=== PATIENT | female | born 1940 | race Caucasian/White ===

== ENCOUNTER 2021-03-04 06:51 | Emergency (ER) | payer MEDICARE, SELFPAY ==
--- NOTE | ~2021-03-04 | XR_ITS ---
EXAMINATION: XR knee LT min 4V DATE: 03/04/2021 07:40 INDICATION: Left knee pain, initial encounter TECHNIQUE: Four views of the left knee were obtained. COMPARISON: None. FINDINGS: There is an acute, traumatic, closed, oblique fracture of the proximal tibia which extends from the medial cortex of the proximal tibia shaft laterally to the lateral tibial plateau. Lipohemar throsis is noted in the knee joint. 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 Calcified atheroscleros is is noted. IMPRESSION: 1. Intra-articular fracture of the proximal tibia with lipohemarthrosis. Reviewed, dictated and finalized at location A.
--- NOTE | ~2021-03-04 | CT_ITS ---
EXAMINATION: CT cervical spine wo con DATE: 03/04/2021 07:52 INDICATION: Head injury TECHNIQUE: Computed tomography (CT) of the cervical spine was performed without intravenous contrast. The dose-length product (DLP) was 319.97 mGy-cm. Automated exposure control and iterative reconstruc tion technique were employed. COMPARISON: None FINDINGS: There is no fracture. There are 2 mm of anterolisthesis of C4 on C5 and C5 on C6. There is severe loss of intervertebral disc space height at C5-6 and C6-7. The odontoid is intact. The prevert ebral soft tissues are normal. There is severe multilevel facet and uncovertebral joint osteoarthriti s. IMPRESSION: 1. Severe cervical spondylosis without acute findings. Reviewed, dictated and finalized at location A.
--- NOTE | ~2021-03-04 | CT_ITS ---
EXAMINATION: CT brain wo con INDICATION: Headache COMPARISON: None TECHNIQUE: Standard unenhanced head CT. The dose-length product (DLP) was 605.33 mGy-cm. The mA was a djusted according to patient size. Iterative reconstruction technique was employed. FINDINGS: There is no acute intraparenchymal hemorrhage. No evidence of mass lesion. No evidence of a cute infarction. There is mild periventricular and subcortical hypodensity probably related to small vessel ischemic disease. There is mild prominence of the sulci and ventricles related to cerebral atr ophy. Intracranial calcified cerebral atherosclerosis is noted. There are no extra-axial collections. There is a left frontal scalp laceration. There is no mass effect or midline shift. Changes in the g lobes are likely from ocular lens surgery. There is mild mucosal thickening of the paranasal sinuses. IMPRESSION: 1. No acute intracranial abnormality. 2. Age related findings. Reviewed, dictated and finalized at location A.
[2021-03-04 06:57] VITALS: BP 163/95; PULSE 87; RESP 18; TEMP 37.1; O2SAT 96
--- NOTE | 2021-03-04 07:33 | ED.FALL ---
HPI - Fall General Chief Complaint: Fall Stated Complaint: Fall, Head lac Time Seen by Provider: 03/04/21 07:11 History of Present Illness HPI Narrative: 80 yo female presents to the ED after a fall. She was walking her sons dog when she was pulled forwar and fell into a wall. She struck her head on the wall and sustained a forehead laceration. No LOC, confusion, nausea, blood thinners. She also struck her knee on the ground. She has severe knee pain and is unable to bear weight. She has also noted significant swelling to the anterior knee. Related Data Home Medications Medication Instructions Recorded Confirmed aspirin 03/04/21 atorvastatin 03/04/21 enalapril maleate 03/04/21 escitalopram oxalate 03/04/21 hydrochlorothiazide 03/04/21 omeprazole 03/04/21 potassium chloride 03/04/21 Allergies Allergy/AdvReac Type Severity Reaction Status Date / Time amoxicillin [From Augmentin] AdvReac Intermediate Diarrhea Verified 03/04/21 07:07 clavulanic acid AdvReac Intermediate Diarrhea Verified 03/04/21 07:07 [From Augmentin] Review of Systems Review of Systems: All systems reviewed & are unremarkable except as noted in HPI and below Constitutional: Constitutional: Denies chills, Denies fever(s) and Denies weakness Eyes: Eyes: Reports no additional eye complaints ENT: Denies dizziness Cardiovascular: Cardiovascular: Denies chest pain Respiratory: Respiratory: Denies dyspnea Gastrointestinal: Gastrointestinal: Denies abdominal pain, Denies nausea and Denies vomiting Genitourinary: Genitourinary: Reports no additional female genitourinary complaints Musculoskeletal: Musculoskeletal: Denies back pain Neurologic: Denies dizziness, Denies headache(s) and Denies weakness [facility] Past Medical History Medical History (Updated 03/04/21 @ 12:53 by Hang Brown MD) Arthritis GERD (gastroesophageal reflux disease) HTN (hypertension) Surgical History Surgical History (Updated 03/04/21 @ 12:53 by Hang Brown MD) Status post right knee replacement Exam Const: General: healthy appearing, no acute distress and alert Orientation/consciousness: patient oriented x3 HENMT: Head: laceration (4 cm forehead laceration) General nose exam: Normal external nose present and Normal nares present Mouth: Yes Normal oral and palatal mucosa present and Yes lip normal Eyes: Pupils: Equal, round and reactive pupils present EOM: EOMs intact bilaterally Neck: Neck: normal visual inspection and no lymphadenopathy Resp: Effort & Inspection: normal respiratory effort Auscultation: clear to auscultation bilaterally, no rales, no rhonchi and no wheezes Cardio: Jugular venous distension: no JVD Rate: regular rate Rhythm: regular rhythm Heart sounds: no murmurs GI: Inspection: non-distended GI Palp: Yes Soft to palpation and No Tenderness to palpation present (GI) Back/Spine/Pelvis: Cervical Spine: cervical ROM normal and No Cervical spine tenderness Skin: General skin exam: normal color Neuro: General: patient oriented x3 and moves all extremities Speech: normal speech Extrem: Other: Left knee: moderate swelling. Joint line tenderness. Severe pain with movement. No wound or deformity. Psych: Appearance: well kempt Affect: normal affect Course Vital Signs Vital signs: Vital Signs Temperature 37.1 C 03/04/21 06:57 Pulse Rate 87 03/04/21 06:57 Respiratory Rate 18 03/04/21 06:57 Blood Pressure 163/95 H 03/04/21 06:57 Pulse Oximetry 96 03/04/21 06:57 Temperature 37.1 C 03/04/21 06:57 Pulse Rate 79 03/04/21 10:25 Respiratory Rate 18 03/04/21 10:25 Blood Pressure 157/95 H 03/04/21 10:25 Pulse Oximetry 100 03/04/21 10:25 Procedures Laceration Laceration 1: Date: 03/04/21 Site: face Size (cm): 4 Description: linear Depth: simple, single layer Local Anesthetic: lidocaine 1% and with epi Amount of anest
[2021-03-04 08:00] VITALS: BP 127/96; PULSE 80; RESP 18; O2SAT 100
[2021-03-04 09:15] VITALS: BP 157/95; PULSE 76; RESP 18; O2SAT 100
[2021-03-04 10:25] VITALS: BP 157/95; PULSE 79; RESP 18; O2SAT 100
== END 2021-03-04 10:30 | disposition home or self-care (01) ==
PROVIDERS: Emergency Provider Emergency Medicine
DX: S01.81XA Laceration without foreign body of other part of head, initial encounter (principal); M19.90 Unspecified osteoarthritis, unspecified site; K21.9 Gastro-esophageal reflux disease without esophagitis; I10 Essential (primary) hypertension; W01.198A Fall on same level from slipping, tripping and stumbling with subsequent striking against other object, initial encounter; Y93.K1 Activity, walking an animal
CPT/HCPCS: 12013; 70450; 72125; 73564; 99284